=== PATIENT | male | born 1960 | race Caucasian/White ===

== ENCOUNTER 2018-04-12 23:47 | Observation (INO) | payer BC ==
[2018-04-13 00:23] LABS: #Basophils 0.1 thou/uL (0.0-0.2); #Eosinphils 0.1 thou/uL (0.0-0.7); #Lymphocytes 2.6 thou/uL (1.20-3.40); #Monocytes 0.9 thou/uL (0.11-0.59); #Neutrophils 7.9 thou/uL (1.40-6.50); %Basophils 0.8 % (0.0-1.0); %Lymphocytes 22.6 % (21.0-51.0); %Monocytes 7.4 % (0.0-10.0); %Neutrophils 68.2 % (42.0-75.0); Hemoglobin 17.2 g/dL (14.0-18.0); Mean Corpuscular HGB CONC 34.8 g/dL (32.0-36.0); Mean Corpuscular Hemoglobin 30.7 pg (27.0-31.0); Mean Corpuscular Volume 88.3 fL (78.0-98.0); Mean Platelet Volume 6.9 fL (7.4-10.4); Platelet Count 292 thou/uL (130-400); RBC Distribution Width 12.1 % (11.5-14.5); Red Blood Cell (RBC) Count 5.59 mill/uL (4.70-6.10); White Blood Cell (WBC) Count 11.6 thou/uL (4.8-10.8)
[2018-04-13 00:38] LABS: ALT (SGPT) 37 U/L (8-55); AST (SGOT) 29 U/L (5-34); Albumin 4.6 g/dL (3.5-5.0); Alkaline Phosphatase 82 U/L (40-150); Anion Gap 16 mmol/L (10-20); BUN (Urea Nitrogen) 16 mg/dL (8.4-25.7); Bilirubin, Total 0.4 mg/dL (0.2-1.2); Calc. Creatinine Clearance 0 mL/min (70-130); Calcium 9.6 mg/dL (7.8-10.44); Carbon Dioxide 21 mmol/L (22-29); Chloride 105 mmol/L (98-107); Estimated GFR-MDRD 74; Globulin 3.1 g/dL (2.4-3.5); Glucose 143 mg/dL (70-105); Potassium 3.8 mmol/L (3.5-5.1); Protein, Total 7.7 g/dL (6.0-8.3); Sodium 138 mmol/L (136-145)
[2018-04-13 01:10] LABS: CKMB 3.8 ng/mL (0-6.6)
[2018-04-13] MEDS ORDERED: Acetaminophen 325 MG TAB PO PRN (02:44)
[2018-04-13] MEDS ORDERED: Ondansetron ODT 4 MG TAB SL PRN (02:44)
[2018-04-13] MEDS ORDERED: HYDROcodone/Acetaminophen 5/325 mg Tablet PO PRN ×2 (02:44)
[2018-04-13] MEDS ORDERED: Ondansetron PF 4 MG/2 ML Vial IVP PRN (02:44)
[2018-04-13 02:57] LABS: Bilirubin Negative (Negative); Blood, Urine Negative (Negative); Clarity CLEAR (Clear); Glucose, Urine (Dipstick) Negative (Negative); Leukocyte Negative (Negative); Nitrite Negative (Negative); Protein, Urine (Dipstick) Negative (Neg-Trace); Specific Gravity, Urine 1.022 (1.002-1.036); Urobilinogen 0.2 mg/dL (0.2-1.0)
[2018-04-13 03:39] VITALS: BMI 34.0
[2018-04-13 08:34] LABS: #Basophils 0.1 thou/uL (0.0-0.2); #Eosinphils 0.2 thou/uL (0.0-0.7); #Lymphocytes 2.4 thou/uL (1.20-3.40); #Neutrophils 4.7 thou/uL (1.40-6.50); %Basophils 1.3 % (0.0-1.0); %Eosinophils 2.2 % (0.0-10.0); %Monocytes 11.4 % (0.0-10.0); %Neutrophils 56.1 % (42.0-75.0); Mean Corpuscular HGB CONC 34.7 g/dL (32.0-36.0); Mean Corpuscular Hemoglobin 30.7 pg (27.0-31.0); Mean Corpuscular Volume 88.4 fL (78.0-98.0); Platelet Count 263 thou/uL (130-400); Red Blood Cell (RBC) Count 5.23 mill/uL (4.70-6.10); White Blood Cell (WBC) Count 8.3 thou/uL (4.8-10.8)
[2018-04-13 08:39] LABS: Hemoglobin A1c 5.2 % (4.0-6.0)
[2018-04-13 08:54] LABS: ALT (SGPT) 32 U/L (8-55); AST (SGOT) 23 U/L (5-34); Albumin 4.3 g/dL (3.5-5.0); Alkaline Phosphatase 72 U/L (40-150); Anion Gap 14 mmol/L (10-20); BUN (Urea Nitrogen) 16 mg/dL (8.4-25.7); Bilirubin, Total 0.5 mg/dL (0.2-1.2); Calc. Creatinine Clearance 152 mL/min (70-130); Calcium 9.4 mg/dL (7.8-10.44); Carbon Dioxide 22 mmol/L (22-29); Cardiac Risk 6.1 (Less than 4.5); Chloride 104 mmol/L (98-107); Cholesterol 270 mg/dl (< 200 Desired); Estimated GFR-MDRD Greater than 90; Globulin 2.6 g/dL (2.4-3.5); Glucose 96 mg/dL (70-105); HDL Cholesterol 44 mg/dL (>60 Neg Risk); LDL Cholesterol, Calculated 162 mg/dL; Protein, Total 6.9 g/dL (6.0-8.3); Sodium 136 mmol/L (136-145); Triglycerides 321 mg/dL (Less than 150)
[2018-04-13] MEDS ORDERED: Lorazepam 2 MG/ML VIAL SLOW IVP PRN (09:32)
--- NOTE | 2018-04-13 10:43 | HP ---
DATE OF ADMISSION: 04/12/2018 PRIMARY CARE PHYSICIAN: Out of town. He lives near [place]. CHIEF COMPLAINT: Altered mental status, confusion. HISTORY OF PRESENT ILLNESS: This is a 57-year-old male, pleasant, alert, oriented, who was at the [employer] football game yesterday with his son, who noticed that starting after halftime his dad was asking the same questions repeatedly and acting like he did not remember having the same conversations repeatedly. This lasted through the fourth quarter, son grew more concerned and insisted that they leave the game, went home primarily to check his blood sugar, which was okay. His blood pressure at that time at home they said was elevated, 180/110. By the time he got to the ER, it did come down slightly. Patient reports he returned to baseline while in the ED, and family reports he is acting appropriately and is no longer confused. The patient had a head CT, which was negative for any acute process. The patient has a past medical history of hypertension; hyperlipidemia, for which he takes medication. He does report that he did take himself off of his statin, because he was having some muscle cramps. The patient was admitted to the stroke unit for further evaluation. PAST MEDICAL HISTORY: As above. PAST FAMILY HISTORY: Positive for both parents with CAD. PAST SURGICAL HISTORY: The patient has had tonsillectomy and appendectomy. He had a cardiac catheterization about 3 years ago, which did not show any signs of coronary artery disease, had a colonoscopy, which was also negative. SOCIAL HISTORY: Patient lives at home with his family. Denies alcohol, drug, or smoking. REVIEW OF SYSTEMS: Constitutional: The patient denies fever or chills. Eyes: Denies any change in eye vision. Denies any eye pain. ENT: Denies any rhinorrhea or sore throat. Cardiovascular: Denies any chest pain or palpitations. Respiratory: Denies any shortness of breath or cough. GI: Denies abdominal pain. Denies nausea, vomiting, diarrhea. : Male. Denies dysuria, hematuria, any changes in urine output. Musculoskeletal: Denies any injuries or falls. Denies any arthralgias or myalgias. Skin: Denies rash or skin changes. Neurologic: Patient does report that he does not remember the game yesterday past halftime. Does report that he feels back to normal today. Denies a headache. PHYSICAL EXAMINATION: VITAL SIGNS: Temperature 98.0, heart rate is 97, respirations 18, blood pressure 172/98, 95% on room air. CONSTITUTIONAL: The patient is afebrile. He appears nontoxic. He is alert and oriented to person, place, and time. HEENT: Head is atraumatic and normocephalic. Eyes: Pupils are equally round and reactive to light. Extraocular muscles are intact. He has no nystagmus. ENT: Mouth exam is normal. Mucous membranes are moist. NECK: Normal range of motion. Trachea is midline. RESPIRATORY/CHEST: No respiratory distress. Breath sounds are clear bilaterally. CARDIOVASCULAR: S1 and S2. No abnormal heart sounds. ABDOMEN: Male. His abdomen is nontender on palpation. Bowel sounds are heard x4. BACK: Normal inspection, normal range of motion, no tenderness. EXTREMITIES: Upper extremities: Normal inspection, normal range of motion, normal strength bilaterally. Sensation is intact bilaterally. Radial pulses are normal bilaterally. Lower extremities: Normal range of motion normal inspection. Motor strength is normal. Sensation intact. Pedal pulses are normal bilaterally. NEURO EXAM: Currently, the patient is oriented to person, place, and time. His speech is normal. Cranial nerves are intact. Lapse of memory for several hours yesterday, remembers events overnight, states he is back to baseline. SKIN: Normal dry and normal color and intact. PSYCHIATRIC: He has a normal affect. EKG interpretation in the ER, normal sinus rhythm. [place] is normal. Radiology interpretation of CT head, which showed no acute process. ASSESSMENT AND PLAN: 1. Transient ischemic attack. We will order an MRI of the brain, carotid ultrasound, and an echocardiogram. Will be given ASA 325mg. 2. Hypertension. We will watch his vital signs closely and we will restart his home medication. 3. Hyperlipidemia. We will get a lipid profile and restart him on his statin. All the other hospital stay will depend on hospital course. ALICIA
--- NOTE | 2018-04-13 10:44 | ULT ---
ULTRASOUND CAROTID DOPPLER: HISTORY: TIA. COMPARISON: None. TECHNIQUE: Real-time, grimaldo scale, color flow, and spectral analysis of the extracranial carotid and vertebral ar teries was performed. FINDINGS: There are no elevated peak systolic velocities in the internal carotid arteries. Antegrade flow to b oth vertebral arteries. Right ICA/CCA ratio is 0.78 and the left ICA/CCA ratio is 0.72. IMPRESSION: No hemodynamically significant stenosis. POS: [facility]
--- NOTE | 2018-04-13 15:27 | PDOC.PN ---
- Subjective Encounter Start Date: 04/13/18 Encounter Start Time: 08:10 -: overnight admission for AMS, confusion, possible TIA -: Examined patient, denies complaints today - Objective Vital Signs & Weight: Vital Signs (12 hours) Temp Pulse Resp BP Pulse Ox 04/13/18 11:40 97.9 F 82 16 143/87 H 91 L 04/13/18 08:00 97.9 F 75 20 159/94 H 92 L Weight Weight 110.495 kg I&O: 04/12/18 04/13/18 04/14/18 06:59 06:59 06:59 Intake Total 474 Balance 474 Result Diagrams: 04/13/18 08:14 04/13/18 08:14 Additional Labs: Accuchecks 04/13/18 04/12/18 00:06 23:51 POC Glucose 163 H 146 H Phys Exam - Physical Examination HEENT: PERRLA, moist MMs, TM's clear Neck: no nodes, no JVD, supple Respiratory: no wheezing, no rales, clear to auscultation bilateral Cardiovascular: RRR, no significant murmur Gastrointestinal: soft, non-tender, positive bowel sounds Musculoskeletal: no edema, pulses present Neurological: non-focal, normal sensation, moves all 4 limbs Lymphatic: no nodes Psychiatric: normal affect, A&O x 3 Skin: no rash, normal turgor, cap refill <2 seconds Dx/Plan - Plan * .
[2018-04-13 15:35] LABS: Amphetamine Not Detected (NotDetected); Barbiturates Screen Not Detected (NotDetected); Benzodiazepine Screen Not Detected (NotDetected); Cocaine Metabolite Screen Not Detected (NotDetected); Medtox Control Line Valid? VALID (VALID); Medtox Reader # READER 1; Methadone Not Detected (NotDetected); Methamphetamine Not Detected (NotDetected); Opiate Screen Not Detected (NotDetected); Oxycodone Screen Not Detected (NotDetected); Phencyclidine (PCP) Not Detected (NotDetected); THC/Cannabinoid Screen Not Detected (NotDetected); Tricyclic Screen Not Detected (NotDetected)
--- NOTE | 2018-04-13 15:50 | CT ---
PRELIMINARY REPORT/[facility]/EMERGENTY AFTER-HOURS PROCEDURE CT Head Without Intravenous Contrast EXAM DATE/TIME: 04/13/2018 12:51 AM CLINICAL HISTORY: 57 years old, male; Signs and symptoms; Altered mental status/memory loss; Age related cognitive decl ine; Patient HX: Family states PT has been repeating himself tonight, PT denies complaints, denies pa in, states he feels fine, a/ x 4, fsbs 146. TECHNIQUE: Axial computed tomography images of the head/brain without intravenous contrast. COMPARISON: No relevant prior studies available. FINDINGS: Brain: Normal. Ventricles: Normal. Bones/joints: Normal. Sinuses: Normal as visualized. Mastoid air cells: Normal as visualized. Soft tissues: Normal. Vasculature: Atherosclerotic vascular calcifications. IMPRESSION: No acute intracranial abnormality. Thank you for allowing us to participate in the care of your patient. Dictated and Authenticated by: Ryan Blank MD 04/13/2018 1:06 AM Central Time ([place] & [place]) FINAL REPORT BRAIN CT WITHOUT IV CONTRAST: EMERGENCY AFTER HOURS EXAM TIME: 12:53 a.m. DATE: 04/13/2018. HISTORY: A 57-year-old male with a history of altered mental status. FINDINGS: No mass or bleed or other acute process. POS: [facility]
--- NOTE | 2018-04-13 16:22 | PDOC.EVN ---
Event Note - Event Note Event Note: Reviewed chart, saw patient. Collaborated with Rachel Fuentes LEGAL ASSISTANT. Agree with assessment and plan as documented.
--- NOTE | 2018-04-13 17:07 | PDOC.PN ---
- Subjective Encounter Start Date: 04/13/18 Encounter Start Time: 12:00 Pt seen re: altered mental status. feels better. No nausea or vomiting. - Objective MAR Reviewed: Yes Vital Signs & Weight: Vital Signs (12 hours) Temp Pulse Resp BP Pulse Ox 04/13/18 15:49 98 F 75 20 154/89 H 95 04/13/18 11:40 97.9 F 82 16 143/87 H 91 L 04/13/18 08:00 97.9 F 75 20 159/94 H 92 L Weight Weight 243 lb 9.6 oz I&O: 04/12/18 04/13/18 04/14/18 06:59 06:59 06:59 Intake Total 474 Balance 474 Result Diagrams: 04/13/18 08:14 04/13/18 08:14 Additional Labs: Accuchecks 04/13/18 04/12/18 00:06 23:51 POC Glucose 163 H 146 H EKG Reviewed by me: Yes (Tele: NSR) Phys Exam - Physical Examination Constitutional: NAD Neck: supple Respiratory: clear to auscultation bilateral Cardiovascular: RRR Gastrointestinal: soft Neurological: moves all 4 limbs Psychiatric: normal affect Dx/Plan (1) Acute encephalopathy Code(s): G93.40 - ENCEPHALOPATHY, UNSPECIFIED Status: Acute Comment: Etiology unclear, workup in progress. - Plan * . Reviewed chart, saw patient. Collaborated with Rachel Fuentes PEST CONTROL SERVICE TECHNICIAN. Agree with assessment and plan as documented. Review of Systems - Medications/Allergies Allergies/Adverse Reactions: Allergies Allergy/AdvReac Type Severity Reaction Status Date / Time No Known Drug Allergies Allergy Verified 04/13/18 03:08 Medications: Current Medications Aspirin (Aspirin) 325 mg PO DAILY [facility] Lisinopril (Zestril) 10 mg PO DAILY [facility] Lorazepam (Ativan) 0.5 mg SLOW IVP ONE PRN PRN Reason: Anxiety/Agitation Stop: 04/14/18 09:33 Metoprolol Succinate (Toprol Xl) 50 mg PO DAILY [facility] Rosuvastatin Calcium (Crestor) 10 mg PO HS [facility]
[2018-04-13] MEDS ORDERED: Rosuvastatin 10 MG TAB PO SCH (21:00)
[2018-04-14 03:36] LABS: #Basophils 0.1 thou/uL (0.0-0.2); #Eosinphils 0.2 thou/uL (0.0-0.7); #Lymphocytes 2.3 thou/uL (1.20-3.40); #Monocytes 0.8 thou/uL (0.11-0.59); #Neutrophils 3.7 thou/uL (1.40-6.50); %Monocytes 11.5 % (0.0-10.0); %Neutrophils 52.5 % (42.0-75.0); Hemoglobin 15.9 g/dL (14.0-18.0); Mean Corpuscular HGB CONC 35.1 g/dL (32.0-36.0); Mean Corpuscular Hemoglobin 31.3 pg (27.0-31.0); Mean Corpuscular Volume 89.2 fL (78.0-98.0); Mean Platelet Volume 6.8 fL (7.4-10.4); Platelet Count 249 thou/uL (130-400); Red Blood Cell (RBC) Count 5.08 mill/uL (4.70-6.10); White Blood Cell (WBC) Count 7.1 thou/uL (4.8-10.8)
[2018-04-14 03:55] LABS: Acetaminophen Less than 6.0 mcg/mL (10.0-30.0); Alcohol Less than 10 mg/dL (Less than 10); Magnesium 2.1 mg/dL (1.6-2.6); Salicylate Less than 8.0 mg/dL (15.0-30.0)
[2018-04-14 03:56] LABS: ALT (SGPT) 31 U/L (8-55); AST (SGOT) 18 U/L (5-34); Albumin 3.9 g/dL (3.5-5.0); Alkaline Phosphatase 71 U/L (40-150); Anion Gap 12 mmol/L (10-20); BUN (Urea Nitrogen) 17 mg/dL (8.4-25.7); Bilirubin, Total 0.4 mg/dL (0.2-1.2); Calc. Creatinine Clearance 155 mL/min (70-130); Calcium 9.1 mg/dL (7.8-10.44); Carbon Dioxide 23 mmol/L (22-29); Chloride 105 mmol/L (98-107); Estimated GFR-MDRD Greater than 90; Globulin 2.6 g/dL (2.4-3.5); Glucose 111 mg/dL (70-105); Potassium 4.3 mmol/L (3.5-5.1); Protein, Total 6.5 g/dL (6.0-8.3); Sodium 136 mmol/L (136-145)
[2018-04-14] MEDS ORDERED: Aspirin 325 MG TAB PO SCH (09:00)
[2018-04-14] MEDS ORDERED: Lisinopril 10 MG TAB PO SCH (09:00)
[2018-04-14] MEDS ORDERED: Lorazepam 2 MG/ML VIAL SLOW IVP PRN (09:49)
[2018-04-14 11:49] VITALS: BP 163/87; TEMP 97.5
--- NOTE | 2018-04-14 12:07 | MRI ---
MRI BRAIN WITH AND WITHOUT CONTRAST: DATE: 04-14-18 HISTORY: 57-year-old male with TIA, altered mental status, memory loss, cognitive decline. TECHNIQUE: Multiple sequences obtained in axial, sagittal, and coronal planes; pre and post IV injection of gado linium-based contrast agent: 20 mL MultiHance. FINDINGS: The ventricles are normal in size and configuration. There is no major intraaxial signal abnormality , restricted diffusion, abnormal intraaxial enhancement, mass, midline shift or any other mass effect , recent intraaxial hemorrhage, or extraaxial fluid collection. IMPRESSION: Normal. earle POS: [facility]
--- NOTE | 2018-04-14 14:10 | PDOC.EVN ---
Event Note - Event Note Event Note: I have interviewed, reviewed and discussed patient with NATALIIA Sinha regarding TIA rule out with negative neuroimaging with CT and MRI studies. Metabolic workup unrevealing. Please see dictated notes and discharge summary for full details. Ok to d/c home with PCP follow up in 7 days.
--- NOTE | 2018-04-14 21:24 | DIS ---
DATE OF ADMISSION: 04/13/2018 DATE OF DISCHARGE: 04/14/2018 DISCHARGE DIAGNOSES: 1. Acute encephalopathy, resolved. 2. Hypertension, stable. 3. Hyperlipidemia, stable. LABORATORY AND DIAGNOSTIC IMAGING: WBC 7.1, RBC 5.08, hemoglobin 15.9. Sodium 136, potassium 4.3, c reatinine 0.82, GFR greater than 90. Hemoglobin A1c 5.2. Magnesium 2.1. Troponin less than 0.010. Triglycerides 321, cholesterol 270, LDL 162, HDL 44. TSH 3.7. Urinalysis unremarkable. Toxicology normal. Plasma alcohol less than 10. CT brain showed no acute intracranial abnormality. Carotid D oppler showed no hemodynamically significant stenosis. MRI brain was normal. HOSPITAL COURSE: Mr. Godinez is a pleasant 57-year-old male who had presented to the [facility] with family due to acute mental status changes, he had went to the [employer] and was noticed to have bouts of repeating questions to family members. He was then taken t o the ER for further evaluation of symptoms. Upon arrival to the ER, his symptoms had resolved and h e had remained at baseline. His glucose was slightly elevated at 146. Hemoglobin A1c was checked an d found to be 5.2. CT of the brain was unremarkable. He was monitored overnight for further symptom s and further workup of his confusion. Carotid Doppler was obtained and found to be unremarkable. A n MRI was also obtained and found to be normal. He was started on aspirin 325 mg oral daily on admis rob and this was continued throughout the hospital course. He also was continued on Crestor 10 mg a t bedtime. He was started on Crestor as outpatient by his PCP; however, due to muscle pains, he had stopped this medication as outpatient, but did not tell his PCP. He was started back during this hos pital course and has not experienced any further muscle pains. His vitals and further lab work have been unremarkable. He was seen and examined with family at bedside prior to discharge, he had remain ed at baseline without any further bouts of confusion. He had denied any headache, dizziness, blurre d vision, chest pain, shortness of breath, or abdominal pain. He was able to ambulate throughout the room without any complaints. He has tolerated a heart-healthy diet. He was instructed to continue aspirin and statin therapy, he was instructed to take Crestor at bedtime. He had verbalized his unde rstanding for discharge plan and was deemed medically stable for discharge home on 04/14/2018. DISCHARGE MEDICATIONS: 1. Crestor 10 mg p.o. at bedtime. 2. Metoprolol succinate 50 mg p.o. daily. 3. Lisinopril 10 mg p.o. daily. 4. Aspirin 325 mg oral daily. FOLLOWUP: The patient was instructed to follow up with his PCP in 1-2 weeks, he will call for an jono ointment later today. CONDITION ON DISCHARGE: Stable, at baseline. DIET: Heart healthy. ACTIVITY: As tolerated. DISPOSITION: Home on 04/14/2018.
== END 2018-04-14 13:14 | disposition home or self-care (01) ==
LOC: ERS 23:47 → 2SE 04-13 01:35
PROVIDERS: ADMIT Hospitalist; ATTEND Hospitalist
DX: G93.40 Encephalopathy, unspecified (principal); I10 Essential (primary) hypertension; E78.5 Hyperlipidemia, unspecified; Z79.899 Other long term (current) drug therapy
CPT/HCPCS: 36415; 36416; 70450; 70553; 80053; 80061; 80306; 80307; 81003; 82553; 83036; 83735; 84132; 84443; 84484; 85025; 93005; 93306; 93880; 96374; G0378; J2060